=== PATIENT | female | born 1970 | race Caucasian/White ===

== ENCOUNTER → 2025-08-08 | Outpatient (CLI) | payer OTHER, SELFPAY ==
--- NOTE | 2025-08-08 09:07 | US_ITS ---
PROCEDURE: ABD LIMITED W/ ELASTOGRAPHY REASON FOR EXAM: ABNORMAL RESULTS OF LIVER FUNCTION STUDIES COMPARISON: None. TECHNIQUE: Procedure Code: [id number] Modality: US Procedure: ABD LIMITED W/ ELASTOGRAPHY Right upper quadrant abdominal ultrasound. [facility]do ElastQ Imaging shear wave elastography for non-invasive assessment of liver tissue stiffness. [facility] EPIQ Elite. FINDINGS: LIVER: Size: Unremarkable Length: 16.5 cm Echotexture: Diffusely echogenic suggesting fatty infiltration. Scattered calcified hepatic granulomas. Contour: Normal Lesions: None identified Elastography: EQI Med: 4.5 kPa EQI Med Skinny: 1.23 m/s IQR/Med: 8.9 %* GALLBLADDER: No stones sludge wall thickening or tenderness. COMMON BILE DUCT: Normal measuring 4.9 mm . PANCREAS: Normal Visualized portions of the right kidney are unremarkable except for tiny nonobstructive right intrarenal calculi.. No right upper quadrant ascites. US/ABD Limited w/ Elastography IMPRESSION: NO TO MILD HEPATIC FIBROSIS Reference Values: SRU <1.37 m/s (5.7kPa): No to mild fibrosis 1.37 m/s - 2.2 m/s: Moderate to severe fibrosis >2.2 m/s (15kPa): Significant fibrosis / cirrhosis METAVIR Score F2 or higher: 1.34 m/s (5.7kPa) F3 or higher: 1.55 m/s (7.3kPa) F4: 1.80 m/s (10kPa) * If the IQR/Med is >30%, the variance in the measurements is a large and the a ccuracy of the measurement may be in question. Reading Location: [place] [id number]
== END | disposition home or self-care (01) ==
PROVIDERS: PCP Registered Nurse General Practice; Referring Provider Registered Nurse General Practice; Visit Provider Registered Nurse General Practice
DX: R94.5 Abnormal results of liver function studies (principal)
CPT/HCPCS: 76705; 76981